=== PATIENT | female | born 1960 | race Caucasian/White ===

== ENCOUNTER 2020-08-27 17:36 | Emergency (ER) | payer BC ==
[2020-08-27 17:50] VITALS: BP 126/81; PULSE 61; TEMP 98.6; BMI 31.9
[2020-08-27] MEDS ORDERED: ACETAMINOPHEN 325 MG TABLET (FP) PO ONE (18:59)
[2020-08-27] MEDS ORDERED: ACETAMINOPHEN 325 MG TABLET (FP) ONE (19:09)
== END 2020-08-27 20:00 | disposition home or self-care (01) ==
LOC: JER 17:36
DX: S00.03XA Contusion of scalp, initial encounter (principal)
CPT/HCPCS: 70450-TC; 72125-TC; 99284-25